=== PATIENT | female | born 1995 | race Caucasian/White ===

== ENCOUNTER 2019-10-06 20:37 | Emergency (ER) | payer OTHER ==
[2019-10-06 20:41] VITALS: BMI 27.4
[2019-10-06 22:30] LABS: EPI CELLS 2.1 /HPF (0-5/HPF); HYALINE CASTS 13 /lpf (0-8); PH,URINE 5.5 (5.0-8.0); URINE APPEARANCE TURBID; URINE BACTERIA 7749.4 /hpf (NEGATIVE); URINE BILIRUBIN NEGATIVE (NEGATIVE); URINE COLOR YELLOW; URINE GLUCOSE (UA) NEGATIVE (NEGATIVE); URINE KETONE NEGATIVE (NEGATIVE); URINE LEUK ESTERASE 3+ (NEGATIVE); URINE NITRITE POSITIVE (NEGATIVE); URINE PROTEIN 3+ (NEGATIVE); URINE RBC 32 /hpf (0-4); URINE UROBILINOGEN 0.2 mg/dL (0.2-1.0); URINE WBC 1370 /hpf (0-5)
[2019-10-06] MEDS ORDERED: CEPHALEXIN MONOHYDRATE 500 MG CAPSULE (UD) PO ONE (23:05)
[2019-10-06] MEDS ORDERED: CEPHALEXIN MONOHYDRATE 500 MG CAPSULE (UD) ONE (23:17)
[2019-10-06 23:34] VITALS: BP 107/71; PULSE 86; TEMP 98.4
--- NOTE | 2019-10-06 23:51 | PDOC ---
History of Present Illness - General Chief Complaint: Pain Stated Complaint: LOWER ABD PAIN Time Seen by Provider: 10/06/19 21:00 History Source: Patient Exam Limitations: No Limitations Past History - Past Medical History Allergies/Adverse Reactions: Allergies Allergy/AdvReac Type Severity Reaction Status Date / Time No Known Allergies Allergy Verified 10/06/19 20:41 Home Medications: Ambulatory Orders Cephalexin Monohydrate [Keflex -] 500 mg PO BID #13 capsule 10/06/19 COPD: No - Psycho Social/Smoking Cessation Hx Smoking History: Never smoked *Physical Exam - Vital Signs Last Vital Signs Temp Pulse Resp BP Pulse Ox 98.4 F 86 19 107/71 99 10/06/19 23:33 10/06/19 23:33 10/06/19 23:33 10/06/19 23:33 10/06/19 23:33 - Physical Exam General Appearance: No: Apparent Distress Respiratory/Chest: positive: Lungs Clear, Normal Breath Sounds. negative: Respiratory Distress Cardiovascular: positive: Regular Rhythm, Regular Rate, S1, S2. negative: Murmur Female Pelvic Exam: negative: CMT, discharge, adnexal tenderness Gastrointestinal/Abdominal: positive: Tender (mild along LLQ), Soft. negative: Distended, Guarding, Rebound Musculoskeletal: negative: CVA Tenderness Integumentary: positive: Normal Color Neurologic: positive: Alert ED Treatment Course - ADDITIONAL ORDERS Additional order review: Laboratory Results 10/06/19 10/06/19 22:01 22:01 Urine Color Yellow Urine Appearance Turbid Urine pH 5.5 Ur Specific [place] 1.020 Urine Protein 3+ H Urine Glucose (UA) Negative Urine Ketones Negative Urine Blood 3+ H Urine Nitrite Positive H Urine Bilirubin Negative Urine Urobilinogen 0.2 Ur Leukocyte Esterase 3+ H Urine WBC (Auto) 1370 Urine RBC (Auto) 32 Urine Casts (Auto) 13 U Pathogenic Cast Auto None U Epithel Cells (Auto) 2.1 Urine Bacteria (Auto) 7749.4 Urine HCG, Qual Negative - RADIOLOGY Radiology Studies Ordered: Category Date Time Status TRANSVAGINAL ULTRASOUND US [US] Stat Ultrasound 10/06/19 22:05 Completed - Medications Given in the ED: ED Medications Discontinued Medications Generic Name Dose Route Start Last Admin Trade Name Freq PRN Reason Stop Dose Admin Cephalexin HCl 500 mg 10/06/19 23:05 02/20/20 23:21 Keflex - PO 10/06/19 23:06 500 mg ONCE ONE Administration Medical Decision Making - Medical Decision Making 24-year-old female with no significant past medical history presents with right- sided pelvic pain radiating to her back from yesterday. Took Motrin and Tylenol today which helped with the pain. Also mentions having increased urinary frequency and mild dysuria. Denies fevers, shortness of breath, chest pain, nausea, vomiting, diarrhea, constipation, hematuria, unusual vaginal discharge. Patient is sexually active with one partner. Denies history of STDs. Last menstrual period was September 24 Pelvic ultrasound shows no acute findings UA is positive for UTI Patient given dose of Keflex 10/06/19 23:49 Discharge - Discharge Information Problems reviewed: Yes Clinical Impression/Diagnosis: UTI (urinary tract infection) Qualifiers: Urinary tract infection type: acute cystitis Hematuria presence: without hematuria Qualified Code(s): N30.00 - Acute cystitis without hematuria Condition: Stable Disposition: HOME - Admission No - Additional Discharge Information Prescriptions: Cephalexin Monohydrate [Keflex -] 500 mg PO BID #13 capsule Prescription Drug Monitoring Program (I-STOP) results: I-STOP not reviewed - Follow up/Referral - Patient Discharge Instructions Patient Printed Discharge Instructions: DI for Urinary Tract Infection (UTI) Additional Instructions: Thank you for choosing [facility]. It was a pleasure taking care of you. You were found to have urine infection Please take the antibiotics as prescribed Drink at least 2L of water daily Follow-up with your doctor in 2 days Return to the Emergency Department if your symptoms worsen or persist or have other concerning symptoms. - Post Discharge Activity
--- NOTE | 2019-10-07 06:21 | PDOC ---
*Physical Exam - Vital Signs Last Vital Signs Temp Pulse Resp BP Pulse Ox 98.4 F 86 19 107/71 99 10/06/19 23:33 10/06/19 23:33 10/06/19 23:33 10/06/19 23:33 10/06/19 23:33 ED Treatment Course - ADDITIONAL ORDERS Additional order review: Laboratory Results 10/06/19 10/06/19 22:01 22:01 Urine Color Yellow Urine Appearance Turbid Urine pH 5.5 Ur Specific [place] 1.020 Urine Protein 3+ H Urine Glucose (UA) Negative Urine Ketones Negative Urine Blood 3+ H Urine Nitrite Positive H Urine Bilirubin Negative Urine Urobilinogen 0.2 Ur Leukocyte Esterase 3+ H Urine WBC (Auto) 1370 Urine RBC (Auto) 32 Urine Casts (Auto) 13 U Pathogenic Cast Auto None U Epithel Cells (Auto) 2.1 Urine Bacteria (Auto) 7749.4 Urine HCG, Qual Negative - Medications Given in the ED: ED Medications Discontinued Medications Generic Name Dose Route Start Last Admin Trade Name Freq PRN Reason Stop Dose Admin Cephalexin HCl 500 mg 10/06/19 23:05 10/06/19 23:21 Keflex - PO 10/06/19 23:06 500 mg ONCE ONE Administration Medical Decision Making - Medical Decision Making 10/07/19 06:21 Case reviewed agree with assessment and plan Discharge - Discharge Information Problems reviewed: Yes Clinical Impression/Diagnosis: UTI (urinary tract infection) Qualifiers: Urinary tract infection type: acute cystitis Hematuria presence: without hematuria Qualified Code(s): N30.00 - Acute cystitis without hematuria Condition: Stable Disposition: HOME - Additional Discharge Information Prescriptions: Cephalexin Monohydrate [Keflex -] 500 mg PO BID #13 capsule - Follow up/Referral - Patient Discharge Instructions Patient Printed Discharge Instructions: DI for Urinary Tract Infection (UTI) Additional Instructions: Thank you for choosing [facility]. It was a pleasure taking care of you. You were found to have urine infection Please take the antibiotics as prescribed Drink at least 2L of water daily Follow-up with your doctor in 2 days Return to the Emergency Department if your symptoms worsen or persist or have other concerning symptoms. - Post Discharge Activity
== END 2019-10-07 00:07 | disposition home or self-care (01) ==
LOC: JER 20:37
DX: N30.00 Acute cystitis without hematuria (principal)
CPT/HCPCS: 76830-TC; 81003; 84703; 87086; 87186; 99284-25